=== PATIENT | female | born 1965 | race Caucasian/White ===

== ENCOUNTER → 2018-01-30 | Outpatient (CLI) | payer BC, OTHER ==
[~2018-01-30] MED LIST: LIDOCAINE 1% MDV 20ML VIAL As Ordered
== END ==
LOC: M RADPRO 12:01
DX: C50.919 Malignant neoplasm of unspecified site of unspecified female breast (principal); Z79.899 Other long term (current) drug therapy; Z88.8 Allergy status to other drugs, medicaments and biological substances; Z91.048 Other nonmedicinal substance allergy status; Z87.891 Personal history of nicotine dependence
CPT/HCPCS: 19083

== ENCOUNTER → 2018-08-28 | Outpatient (CLI) | payer BC, OTHER ==
[~2018-08-28] MED LIST changes: -LIDOCAINE 1% MDV 20ML VIAL As Ordered; +METHACHOLINE KIT (J7674) INH ONE
--- NOTE | 2018-08-28 14:27 | PFTRPT ---
Site: [facility], [address] [place], [address] ID: [id number] Name: MORRIS LUKE Visit Date: 08/28/2018 Second ID: [id number] Referring Doctor: Quintin Mendez MD Reviewing Doctor: Quintin Mendez MD Staff Development Nurse: Susan BROWN RRT Age: 52 : 1965 Sex: Female Race: Height: 60.00 Inches Weight: 103.00 Lbs BSA: 1.41 Order IDs: [id number] Requested Test(s): <RESP-PFT.METH CHAL> Diagnosis: R05 puffs of albuterol for post bronchodilator. Review Status: Not Reviewed Pre-Bronch Post-Bronch Pred Actual %Pred Actual %Chng SPIROMETRY FVC (L) 3.03 2.91 95 2.78 -4 FEV1 (L) 2.39 2.09 87 2.06 -1 FEV1/FVC (%) 80 72 89 74 3 FEF 25% (L/sec) 4.76 2.90 60 3.22 11 FEF 50% (L/sec) 3.87 1.87 48 1.98 6 FEF 75% (L/sec) 1.40 0.63 45 0.49 -22 FEF 25-75% (L/sec) 2.46 1.60 65 1.46 -8 FEF Max (L/sec) 6.07 3.58 59 3.39 -5 FIVC (L) 3.01 2.70 -10 FIF 50% (L/sec) 3.25 4.06 125 3.15 -22 FIF Max (L/sec) 4.11 3.15 -23 Expiratory Time (sec) 7.15 7.05 -1 Back Extrap Vol (L) 0.06 0.07 16 Time To FEFmax (sec) 0.106 0.150 40
== END ==
LOC: M CARPUL 13:27
PROVIDERS: ATTEND Internal Medicine Pulmonary Disease
DX: R05 Cough (principal)
CPT/HCPCS: 94070; J7674

== ENCOUNTER → 2018-12-31 | Outpatient (REF) | payer OTHER ==
[2019-01-03 14:10] LABS: HPV HYBRID CAPTURE II Negative (Negative)
== END ==
LOC: M LAB LCGH 11:44
PROVIDERS: ATTEND Nurse Practitioner Adult Health
DX: Z12.4 Encounter for screening for malignant neoplasm of cervix (principal)

== ENCOUNTER → 2021-05-26 | Outpatient (REF) | payer OTHER | LOC: M LAB REF 15:05 | PROVIDERS: ATTEND Otolaryngology | DX: H61.23 Impacted cerumen, bilateral (principal) ==

== ENCOUNTER → 2021-07-16 | Outpatient (CLI) | payer BC, OTHER ==
[~2021-07-16] MED LIST changes: -METHACHOLINE KIT (J7674) INH ONE; +PROHANCE 279.3MG/ML 5ML VIAL As Ordered ONE
== END ==
LOC: M RAD 08:36
PROVIDERS: ATTEND Otolaryngology
DX: H90.42 Sensorineural hearing loss, unilateral, left ear, with unrestricted hearing on the contralateral side (principal)
CPT/HCPCS: 70553; A9576